=== PATIENT | male | born 1960 | race Caucasian/White ===

== ENCOUNTER → 2017-09-07 | Outpatient (CLI) | payer BC | END | disposition home or self-care (01) | LOC: HKI 13:36 | DX: M17.12 Unilateral primary osteoarthritis, left knee (principal); M23.42 Loose body in knee, left knee; M23.222 Derangement of posterior horn of medial meniscus due to old tear or injury, left knee | CPT/HCPCS: G0463 ==

== ENCOUNTER 2017-09-25 05:32 | Day surgery (SDC) | payer BC ==
[2017-09-25] MEDS: ACETAMINOPHEN 1000MG/100ML IV 100 ML IVPB (06:22)
[2017-09-25] MEDS: LANSOPRAZOLE 30 MG CAP PO (06:22)
[2017-09-25] MEDS: LACTATED RINGER'S 1,000 ML IV* (06:23)
[2017-09-25] MEDS: ONDANSETRON 4 MG INJ IV (06:23)
[2017-09-25] MEDS: DEXAMETHASONE 4 MG/ML 1 ML INJ IV (06:23)
[2017-09-25] MEDS: VANCOMYCIN 1 GM (PMX) 250 ML IVPB (06:23)
[2017-09-25] MEDS ORDERED: SUGAMMADEX SODIUM 200 MG/2 ML VIAL IV (07:00)
[2017-09-25] MEDS ORDERED: BUPIVACAINE 0.5%/EPI (SDV) 30 ML INJ INJ (07:30)
[2017-09-25] MEDS ORDERED: MIDAZOLAM 1 MG/ML 2 ML INJ (07:32)
[2017-09-25] MEDS ORDERED: PROPOFOL 20 ML (07:32)
[2017-09-25] MEDS ORDERED: NEOSTIGMINE 3 MG/3 ML SYRINGE (07:32)
[2017-09-25] MEDS ORDERED: ROCURONIUM 50 MG INJ (07:32)
[2017-09-25] MEDS ORDERED: GLYCOPYRROLATE 0.4 MG INJ (07:32)
[2017-09-25] MEDS ORDERED: CEFAZOLIN 1 GM INJ (07:32)
[2017-09-25] MEDS ORDERED: FENTAnyl 50 MCG/ML VIAL (07:33)
[2017-09-25] MEDS ORDERED: DEXAMETHASONE 4 MG/ML 1 ML INJ (07:33)
[2017-09-25] MEDS ORDERED: ONDANSETRON 4 MG INJ (07:33)
[2017-09-25] MEDS ORDERED: HYDROCODONE/APAP (5/325) TAB PO (08:00)
[2017-09-25] MEDS ORDERED: HYDROCODONE/APAP (10/325) TAB PO (08:00)
[2017-09-25] MEDS ORDERED: ONDANSETRON 4 MG INJ IV ×2 (08:00→08:30)
[2017-09-25] MEDS: LIDOCAINE 1%/EPI 30 ML INJ (08:08)
[2017-09-25] MEDS: BUPIVACAINE 0.25% (MPF) 30 ML INJ (08:09)
[2017-09-25] MEDS ORDERED: HYDROmorphONE (0.2 MG/ML) 10ML SYG IV ×3 (08:30)
[2017-09-25] MEDS ORDERED: LABETALOL HCL 20MG INJ IV (08:30)
[2017-09-25] MEDS ORDERED: IPRATROPIUM (NEB) 0.5 MG/2.5 ML AMP HHN (08:30)
[2017-09-25] MEDS ORDERED: hydrALAzine 20 MG INJ IV (08:30)
[2017-09-25] MEDS ORDERED: TRIMETHOBENZAMIDE 100 MG/ML VIAL IM (08:30)
[2017-09-25] MEDS ORDERED: MEPERIDINE 25 MG INJ IV (08:30)
[2017-09-25] MEDS ORDERED: ALBUTEROL 0.083% (NEB) 2.5 MG/3 ML AMP HHN (08:30)
[2017-09-25] MEDS ORDERED: OXYCODONE/ACETAMINOPHEN (5/325) TAB PO ×2 (08:30)
[2017-09-25] MEDS ORDERED: EPHEDrine SULFATE 50 MG/5 ML SYG IV (08:30)
[2017-09-25] MEDS ORDERED: DIPHENHYDRAMINE 50 MG INJ IV (08:30)
[2017-09-25] MEDS ORDERED: FENTAnyl 50 MCG/ML VIAL IV ×3 (08:30)
[2017-09-25] MEDS ORDERED: MIDAZOLAM 1 MG/ML 2 ML INJ IV (08:30)
== END 2017-09-25 10:25 | disposition home or self-care (01) ==
LOC: SDS 05:32
DX: M23.204 Derangement of unspecified medial meniscus due to old tear or injury, left knee (principal); M17.12 Unilateral primary osteoarthritis, left knee; M23.42 Loose body in knee, left knee; I10 Essential (primary) hypertension; E11.9 Type 2 diabetes mellitus without complications
CPT/HCPCS: 29881; 82962

== ENCOUNTER → 2017-10-12 | Outpatient (CLI) | payer BC | END | disposition home or self-care (01) | LOC: HKI 14:52 | DX: Z47.1 Aftercare following joint replacement surgery (principal); M25.562 Pain in left knee; R22.42 Localized swelling, mass and lump, left lower limb; Z96.652 Presence of left artificial knee joint ==